=== PATIENT | male | born 1960 | race Caucasian/White ===

== ENCOUNTER 2020-06-04 12:31 | Inpatient (IN) | payer MEDICAID, OTHER ==
[~2020-06-04] VITALS: Ht 172.7 cm; Wt 70.3 kg
[2020-06-04] VITALS (18 sets, daily range): BP systolic 70–178; BP diastolic 35–106
[2020-06-04] MEDS ORDERED: ACETAMINOPHEN 500 MG TAB PO ONE ×2 (13:26→14:30)
[2020-06-04] MEDS ORDERED: DEXTROSE 50% SYRINGE 50 ML IV ONE (13:29)
[2020-06-04] MEDS ORDERED: SODIUM CHLORIDE 0.9% 2,000 ML IV ONE ×2 (13:30→14:30)
[2020-06-04] MEDS ORDERED: MIDAZOLAM HCL 5 MG/ML-1ML VIAL IV ONE (14:00)
[2020-06-04] MEDS ORDERED: MIDAZOLAM HCL 5 MG/ML-1ML VIAL ONE (14:01)
[2020-06-04] MEDS ORDERED: MIDAZOLAM DRIP 50 mg/50mL 50 ML IV ONE (14:09)
[2020-06-04] MEDS: MIDAZOLAM DRIP 50 mg/50mL 50 ML IV SCH ×3 (14:15→21:53)
[2020-06-04 14:18] LABS: Hematocrit 45.5 % (41.0-53.0); Mean Corpuscular Hemoglobin 29.5 pg (28.0-32.0); Mean Corpuscular Hgb Conc. 33.1 g/dL (32.0-36.0); Mean Corpuscular Volume 89.2 fL (80.0-100.0); Platelet Count (auto) 137 10^3/uL (140-450); White Blood Cell 5.7 10^3/uL (4.4-10.8)
[2020-06-04 14:25] LABS: Urine Amorphous Crystal FEW /hpf (None Seen); Urine Bacteria MANY /hpf (None Seen); Urine Blood 3+ /uL (Negative); Urine Hyaline Cast MANY /lpf (0 - 2); Urine Mucus FEW (None Seen); Urine Specific Gravity 1.022 (1.001-1.035); Urine WBC 13 /hpf (0 - 3); Urine WBC Clumps PRESENT /hpf (None Seen)
[2020-06-04] MEDS ORDERED: NOREPINEPHRINE 8 MG/250ML KIT 250 ML IV ONE (14:25)
[2020-06-04 14:30] LABS: Basophils % (manual) 0 (0.0-2.0); Blast Cells 0; Eosinophils % (manual) 0 (0-7); Myelocytes % 0; Promyelocytes % 0; Reactive Lymphocytes 0
[2020-06-04 14:34] LABS: Albumin 2.1 g/dL (3.4-5.0); Alcohol, Urine < 3.0 mg/dL (0-10); Amphetamine Screen, Urine POSITIVE (NEGATIVE); Anion Gap 16 (5-15); Barbiturate Scree,Urine NEGATIVE (NEGATIVE); Benzodiazephine Screen, Urine NEGATIVE (NEGATIVE); Calcium 8.4 mg/dL (8.5-10.1); Cannabinoid Screen, Urine NEGATIVE (NEGATIVE); Carbon Dioxide 18 mmol/L (21-32); Chloride 97 mmol/L (98-107); Cocaine Screen, Urine NEGATIVE (NEGATIVE); Glucose 164 mg/dL (74-106); Magnesium 2.6 mg/dL (1.6-2.6); Opiate Scree,Urine NEGATIVE (NEGATIVE); Phencyclidine Screen, Urine NEGATIVE (NEGATIVE); Potassium 4.2 mmol/L (3.5-5.1); Sodium 131 mmol/L (136-145)
[2020-06-04] MEDS ORDERED: cefTRIAXone 1GM/50ML D5W 50 ML IV ONE (14:45)
[2020-06-04] MEDS ORDERED: DEXTROSE (50%) 50ML SYRG IV ONE (14:45)
[2020-06-04] MEDS ORDERED: NOREPINEPHRINE 8 MG/250ML KIT 250 ML IV SCH (14:45)
[2020-06-04] MEDS ORDERED: AZITHROMYCIN 500MG/ 250ML 250 ML IV ONE (14:45)
[2020-06-04] MEDS ORDERED: ACETAMINOPHEN 650 MG RECT SUPP PR ONE ×2 (14:50→15:00)
[2020-06-04 14:51] LABS: Alanine Aminotransferase 64 U/L (16-61); Alkaline Phosphatase 50 U/L (45-117); Aspartate Aminotransferase 113 U/L (15-37); Bilirubin, Total 0.7 mg/dL (0.2-1.0); Blood Alcohol < 3.0 mg/dL (0-5); Creatine Kinase IFCC 2519 U/L (39-308); GFR African American 26 mL/min; GFR Non-African American 22 mL/min; Total Protein 6.8 g/dL (6.4-8.2)
[2020-06-04 14:59] LABS: INR 1.16 (0.9-1.15); Partial Thromboplastin Time 39.6 sec (23.0-31.2)
[2020-06-04 15:04] LABS: Band Neutrophils % (manual) 5; Lymphocytes % (manual) 8 (10.0-50.0); Metamyelocytes % 1; Monocytes % (manual) 11 (0-12)
[2020-06-04 15:19] LABS: Blood Urea Nitrogen 85 mg/dL (7-18)
[2020-06-04] MEDS ORDERED: LIDOCAINE 1% (LOCAL ANESTH.) PF 5ml SDV ID ONE (16:45)
[2020-06-04] MEDS ORDERED: MORPHINE SULF INJ 2 MG/ML SYRINGE 1ML IV PRN ×3 (18:00→18:15)
[2020-06-04] MEDS ORDERED: NITROGLYCERIN 0.4 MG SL TAB SL PRN (18:00)
[2020-06-04] MEDS ORDERED: ALBUTEROL SULF 2.5 MG/0.5ML(0.5%) NEB SOLN NEB PRN (18:15)
[2020-06-04] MEDS ORDERED: PIPERACILLIN-TAZOB 2.25GM 50 ML IV ONE (18:15)
[2020-06-04] MEDS ORDERED: SODIUM CHLORIDE 0.9% 1,000 ML IV SCH (18:15)
[2020-06-04] MEDS ORDERED: PROMETHAZINE HCL 25 MG/ML 1ML IV PRN (18:15)
[2020-06-04] MEDS ORDERED: PANTOPRAZOLE 40 MG/10 ML VIAL INJ IV SCH (18:20)
[2020-06-04] MEDS ORDERED: ENOXAPARIN SOD 30 MG/0.3 ML SYRINGE SC SCH (18:22)
[2020-06-04] MEDS ORDERED: ACETAMINOPHEN 500 MG TAB PO PRN (18:30)
[2020-06-04] MEDS ORDERED: SODIUM BICARBONATE 50ML VIAL 50 ML in D5W/SOD CHL 0.45% 1,000 ML IV SCH (18:45)
[2020-06-04] MEDS ORDERED: ASCORBIC ACID 1,000 MG TAB PO SCH (19:00)
[2020-06-04] MEDS ORDERED: CHOLECALCIFEROL (VITD3) 2,000 UNIT CAP PO SCH (19:01)
[2020-06-04] MEDS ORDERED: DexAMETHasone SOD PHOS 10MG/1ML VIAL INJ IV SCH (19:01)
[2020-06-04] MEDS: LINEZOLID 600MG/300ML 300 ML IV SCH ×2 (19:28→21:52)
[2020-06-04] MEDS ORDERED: PHENYLEPHRINE IV 250 ML IV ONE ×2 (21:38→22:58)
[2020-06-04] MEDS ORDERED: ALBUTEROL SULF HFA 90MCG INH 200DOSE IN SCH (22:00)
[2020-06-04] MEDS ORDERED: SODIUM CHLOR 0.9% PF (SALINE LOCK) 10ML VIAL/SYR IV SCH (22:00)
[2020-06-04] MEDS ORDERED: BUDESONIDE (INHALATION) 180 MCG IH IN SCH (22:00)
[2020-06-04] MEDS ORDERED: PHENYLEPHRINE INJ 40 MG in SODIUM CHL 0.9% 250 ML IV SCH (22:30)
[2020-06-04] MEDS ORDERED: NOREPINEPHRINE BITARTRATE 16 MG in SODIUM CHL 0.9% 250 ML IV SCH (22:30)
[2020-06-04] MEDS ORDERED: fentaNYL Drip 2500mCg/250mlNS 250 ML IV SCH (22:30)
[2020-06-04] MEDS ORDERED: PHENYLEPHRINE HCL 10 MG/ML VL ONE (22:58)
[2020-06-04] MEDS ORDERED: SODIUM BICARBONATE 8.4% INJ 50ML SYRINGE ONE (23:06)
[2020-06-04] MEDS ORDERED: ATROPINE SULFATE 1 MG/1 ML VIAL ONE (23:07)
[2020-06-05] VITALS: BP 89/45
[2020-06-05] MEDS ORDERED: PIPERACILLIN-TAZOB 2.25GM 50 ML IV SCH
[2020-06-05] MEDS ORDERED: ALBUTEROL SULF 2.5 MG/0.5ML(0.5%) NEB SOLN NEB SCH
[2020-06-05] MEDS ORDERED: IPRATROPIUM BROM 0.5 MG/2.5ML INH SOL NEB SCH
[2020-06-05 00:15] VITALS: BP 89/60
[2020-06-05] MEDS ORDERED: CALCIUM CHLOR(10%) 100MG/ML 10ML SYRINGE IV ONE (05:59)
[2020-06-05] MEDS ORDERED: EPINEPHrine HCL 1 MG/10 ML SYRG IV ONE (05:59)
[2020-06-05] MEDS ORDERED: SODIUM BICARBONATE 8.4% INJ 50ML SYRINGE IV ONE (05:59)
[2020-06-05] MEDS ORDERED: AZITHROMYCIN 500MG/ 250ML 250 ML IV SCH (10:00)
== END 2020-06-05 06:00 | DRG 720 ==
LOC: EDBD 12:31 → ER 12:31 → ICU WEST 12:32
PROVIDERS: ADMIT Internal Medicine; ATTEND Internal Medicine
PROC: 5A1935Z Respiratory Ventilation, Less than 24 Consecutive Hours (ICD-10-PCS; principal; 2020-06-04)
PROC: 0BH17EZ Insertion of Endotracheal Airway into Trachea, Via Natural or Artificial Opening (ICD-10-PCS; 2020-06-04)
PROC: 5A12012 Performance of Cardiac Output, Single, Manual (ICD-10-PCS; 2020-06-04)
PROC: 02HV33Z Insertion of Infusion Device into Superior Vena Cava, Percutaneous Approach (ICD-10-PCS; 2020-06-04)
DX: A41.9 Sepsis, unspecified organism (principal); J96.01 Acute respiratory failure with hypoxia; J18.9 Pneumonia, unspecified organism; I50.41 Acute combined systolic (congestive) and diastolic (congestive) heart failure; G93.41 Metabolic encephalopathy; N17.9 Acute kidney failure, unspecified; M62.82 Rhabdomyolysis; R65.20 Severe sepsis without septic shock; F15.90 Other stimulant use, unspecified, uncomplicated; Z20.828 Contact with and (suspected) exposure to other viral communicable diseases
CPT/HCPCS: 31500; 36415; 36569; 36600; 70450; 71045; 71250; 72125; 74176; 76775; 80053; 80307; 80320; 81001; 82550; 82805; 82962; 83605; 83735; 83880; 84484; 85007; 85027; 85610; 85730; 87040; 87070; 87077; 87081; 87086; 87088; 87186; 87205; 87426; 92950; 93005; 94002; 94640; 96365; 96367; 99291; C9113; G0378; J0461; J0696; J2250; J2543